=== PATIENT | female | born 1965 | race Caucasian/White ===

== ENCOUNTER → 2017-08-23 | Outpatient (CLI) | payer OTHER | LOC: FIMAGING 14:26 | PROVIDERS: ATTEND Naturopath | DX: R10.32 Left lower quadrant pain (principal); N83.201 Unspecified ovarian cyst, right side ==

== ENCOUNTER → 2018-06-15 | Outpatient (CLI) | payer BC | LOC: FIMAGING 10:13 | DX: R10.2 Pelvic and perineal pain (principal); N83.201 Unspecified ovarian cyst, right side ==